=== PATIENT | female | born 1965 | race Caucasian/White ===

== ENCOUNTER → 2017-01-17 | Outpatient (CLI) | payer BC ==
[~2017-01-17] MED LIST: ACET650T7 PO; ALBU8.5H INH; ALEN70TA2 PO; BUDE90AE INH; CALC0.5C2 PO; CYAN1TAB46 PO; ESOM40CA PO; FURO40TA5 PO; GABA-338 PO; GLUC-176 PO; KRIL500C PO; LEVO150T9 PO; LORA-326 PO; OLME1TAB19 PO; ONDA4TAB7 PO; PYRI100T2 PO
--- NOTE | 2017-01-18 10:21 | DI ---
Indication: ITS.REASON: SPONDYLOLISTHESIS PROCEDURE: LUMBAR SPINE W/ BENDING VIEWS: Encounter: Initial Comparison: December 19, 2016 MRI Findings: Alignment of the lumbar spine is stable with grade 1 anterolisthesis of L4 on L5. This could be due to degenerative facet disease or possibly spondylolysis. Vertebral body heights are maintained. Mild disk space narrowing also at L4-L5. Severe degenerative facet change at L4-S1. Evidence of posterior decompression at L4-L5. Cholecystectomy clips are seen. Flexion and extension views were performed with no evidence of dynamic subluxation. Impression: Degenerative disk and facet disease of the lower lumbar spine. .
== END ==
LOC: IMA 16:54
PROVIDERS: ATTEND Physician Assistant
DX: M43.16 Spondylolisthesis, lumbar region (principal); M47.897 Other spondylosis, lumbosacral region; M51.36 Other intervertebral disc degeneration, lumbar region

== ENCOUNTER → 2017-02-27 | Outpatient (CLI) | payer BC ==
[2017-02-27 10:42] LABS: MRSA SPECIMEN NASAL
[2017-02-27 10:48] LABS: BASOPHILS % (AUTO) 0.6 % (0-2); EOSINOPHILS # (AUTO) 0.1 T/MM3 (0-0.5); EOSINOPHILS % (AUTO) 2.4 % (0-4); HGB - HEMOGLOBIN 13.2 GM/DL (12-16); IMMATURE GRANULOCYTE # (AUTO) 0.01 T/MM3 (0.00-0.03); IMMATURE GRANULOCYTE % (AUTO) 0.2 % (0.0-0.5); LYMPHOCYTES # (AUTO) 1.3 T/MM3 (1-4.8); LYMPHOCYTES % (AUTO) 26.7 % (23-45); MEAN CORPUSCULAR HGB 29.1 UUG (26-34); MEAN CORPUSCULAR VOLUME 88.3 UM3 (80-100); MEAN PLATELET VOLUME 9.6 UM3 (9.4-12.4); MONOCYTES # (AUTO) 0.3 T/MM3 (0-0.8); NEUTROPHILS #(AUTO)-ABSOLUTE 3.2 T/MM3 (1.8-7.7); NEUTROPHILS % (AUTO) 64.1 % (33-66); RED BLOOD COUNT 4.53 M/MM3 (4.00-5.20)
[2017-02-27 10:59] LABS: ALBUMIN 4.6 G/DL (3.5-5.0); ALBUMIN/GLOBULIN RATIO 1.6 RATIO (1.1-2.2); ALKALINE PHOSPHATASE 82 U/L (38-126); ALT (SGPT) 50 U/L (9-52); ANION GAP 14 MEQ/L (5-15); AST (SGOT) 31 U/L (14-36); BUN/CREATININE RATIO 14 RATIO (6-26); CALCIUM 9.4 MG/DL (8.4-10.2); CHLORIDE 103 MEQ/L (98-107); CO2 - CARBON DIOXIDE 28 MEQ/L (22-30); CREATININE 0.9 MG/DL (0.7-1.2); GLOMERULAR FILTRATION RATE 65; GLUCOSE 100 MG/DL (65-110); POTASSIUM 3.7 MEQ/L (3.6-5); SODIUM 145 MEQ/L (134-144); TOTAL PROTEIN 7.5 G/DL (6.3-8.2)
[2017-02-27 11:58] LABS: MRSA SCREEN BY PCR NEGATIVE (NEGATIVE)
== END ==
LOC: LAB 10:13
PROVIDERS: ATTEND Family Medicine
DX: Z01.818 Encounter for other preprocedural examination (principal)
CPT/HCPCS: 36415; 80053; 85025; 87641